=== PATIENT | male | born 1960 | race Caucasian/White ===

== ENCOUNTER → 2024-10-15 | Outpatient (CLI) | payer OTHER ==
[~2024-10-15] MED LIST: ACET-1515 PO; ALBU8.5H PO; ALEN70TA82 PO; ATOR40TA75 PO; BUPR-69 PO; BUSP15TA47 PO; CLOP75TA2 PO; EZET10TA21 PO; FINA5TAB2 PO; FURO20TA2 PO; TRAZ-252 PO; VALS1TAB67 PO
== END ==
LOC: M PLARAD 11:45
PROVIDERS: ATTEND Internal Medicine Medical Oncology
DX: C34.82 Malignant neoplasm of overlapping sites of left bronchus and lung (principal)
CPT/HCPCS: 78815; A9552

== ENCOUNTER → 2024-10-15 | Outpatient (CLI) | payer OTHER | LOC: M PLARAD 10:38 | PROVIDERS: ATTEND Internal Medicine Medical Oncology | DX: C34.82 Malignant neoplasm of overlapping sites of left bronchus and lung (principal); Z53.9 Procedure and treatment not carried out, unspecified reason ==

== ENCOUNTER → 2024-11-20 | Outpatient (CLI) | payer OTHER ==
[~2024-11-20] MED LIST changes: -EZET10TA21 PO; +EZET10TA57 PO
== END ==
LOC: M ONCM 10:08
PROVIDERS: ATTEND Dietitian, Registered
DX: R91.8 Other nonspecific abnormal finding of lung field (principal); Z71.3 Dietary counseling and surveillance; Z68.23 Body mass index [BMI] 23.0-23.9, adult